=== PATIENT | male | born 1960 | race Caucasian/White ===

== ENCOUNTER 2018-10-29 01:40 | Observation (INO) ==
[2018-10-29] MEDS ORDERED: KETOROLAC TROMETHAMINE 15 MG/ML VIAL IV STA (02:17)
[2018-10-29 02:28] LABS: Hematocrit (blood only) 42.2 % (42-52); Hemoglobin 14.6 g/dL (14.0-18.0); Mean Corpuscular Hgb Conc 34.6 g/dL (32-36); Mean Platelet Volume 9.7 fL (7.4-10.4); Platelet Count 263 K/uL (130-400); RDW Standard Deviation 44.5 fL (36.4-46.3); Red Blood Count 4.54 M/uL (4.7-6.1)
[2018-10-29 02:46] LABS: Albumin Level 4.1 gm/dl (3.4-5.0); BUN Creatinine Ratio 18.9 (10-20); Calcium 8.8 mg/dl (8.5-10.1); Creatinine Clr Calc Pharmacy 82.6 ml/min; Est GFR (African American) 88.2; Est GFR (Non-African American) 76.1
[2018-10-29 02:47] LABS: Basophils # (auto) 0.03 K/uL (0-0.2); Basophils % (auto) 0.1 %; Immature Granulocytes # (auto) 0.09 K/uL (0.00-0.02); Immature Granulocytes % (auto) 0.4 %; Lymphocytes # (auto) 1.31 K/uL (1.2-3.4); Lymphocytes % (auto) 5.6 %; Monocytes # (auto) 1.75 K/uL (0.11-0.59); Monocytes % (auto) 7.5 %; Neutrophils # (auto) 20.12 K/uL (1.4-6.5); Neutrophils % (auto) 86.4 %
[2018-10-29 03:08] LABS: Albumin Globulin Ratio 1.1 (0.9-2); Bilirubin,Total 1.5 mg/dl (0.2-1); Globulin 3.7 gm/dl (2.5-4.0); Total Protein 7.8 gm/dl (6.4-8.2); Troponin I 0.098 ng/ml (0-0.045)
[2018-10-29 03:13] LABS: Influenza A virus by PCR Neg for Influ A (Neg); Influenza B virus by PCR Neg for Influ B (Neg)
[2018-10-29] MEDS ORDERED: cefTRIAXone SODIUM 1,000 MG in DEXTROSE 5% 50 ML IV STA (03:16)
[2018-10-29] MEDS ORDERED: OPTIRAY 320 125ml IV PRN (04:17)
--- NOTE | 2018-10-29 04:27 | History & Physical Report ---
Date of Service October 29, 2018 Assessment & Plan (1) Chest pain: 58-year-old male with chest pain. Pain is positional/pleuritic. Significant family history of IL. Elevated troponin found, EKG showed normal sinus rhythm Positional, pleuritic chest pain in the setting of recent URI Awaiting CT results, rule out pulmonary embolism Pain was improved with Toradol, suspicious for pericarditis/myocarditis Ordering the followingESR, CRP, Lyme's. Continue to trend troponin--significant family h/o CAD Echocardiogram ordered Cardiology consult--his see Dr. Perez, will consult [facility] Cardiology PRN Toradol for pain Leukocytosis Recent viral symptomschest x-ray did not show any signs of consolidation or bacterial transformation Blood cultures were drawn in the ED Consider ordering other infectious labsanaplasmosis, Ehrlichiosis Asthma Continue ICS and as needed albuterol DVT prophylaxis SCDs/ambulate CODE STATUS Full FEN N.p.o. (2) URI (upper respiratory infection): (3) Asthma: (4) Family history of early CAD: History of Present Illness Primary Care Provider: Porfirio Jimenez MD 58-year-old male with a history of asthma presents with chest pain beginning tonight at 5:30 PM. He states that he was not doing anything in particular when the pain beganstates that the pain became more severe with deep inspiration and with movement. He cannot remember a specific injury that halls occurred recently. He does report frequent exercise throughout the weekbiking and weightlifting. He describes the pain as a sharp pinpoint pain and states that there is some radiation to the left shoulder. States that the pain was bothering him all night until he came into the hospital around 1 AM. Patient describes being sick with URI symptoms that he has been unable to shake for the past 3 weeks. Cardiac risk factors; The patient has a significant family history of an IL in his father at age 59, his uncle at age 36 and his grandfather at age 40. He states that they all were heavy drinkers and smokers. The patient denies smoking. He denies a history of hypercholesterolemia, hypertension or diabetes. The patient exercises frequently. Patient does describe having chest pain in the past, he thinks it was in 2010. He states that he had a stress test at that time which was negative. He was diagnosed around the same time with asthma and has been using an inhaled corticosteroid and albuterol since. His asthma symptoms are stable. He denies any history of blood clots. Allergies Allergy/AdvReac Type Severity Reaction Status Date / Time tetanus immune globulin Allergy Unknown Unknown Unverified 10/29/18 04:35 CONTRASTMEDIA AdvReac Unknown Unknown Uncoded 10/29/18 04:35 Home Medications Home Medications Medication Instructions Recorded Confirmed Type acetaminophen [Tylenol Extra 1,000 mg PO Q4 PRN 10/29/18 10/29/18 History Strength] albuterol sulfate 1 puff INHALATION Q6H PRN 10/29/18 10/29/18 History fexofenadine [Regla Allergy] 180 mg PO DAILY 10/29/18 10/29/18 History fluticasone propion-salmeterol 1 inh INHALATION DAILY 10/29/18 10/29/18 History [Advair Diskus] glucosamine sulfate 1,000 mg PO DAILY 10/29/18 10/29/18 History multivitamin [Multiple Vitamins] 1 tab PO DAILY 10/29/18 10/29/18 History vitamin B complex 1 tab PO DAILY 10/29/18 10/29/18 History levofloxacin 750 mg PO DAILY #3 tab 10/30/18 Rx Past Med/Surg History Medical History Asthma Family History Other No pertinent family history Social History Preferred Language: Mauritian Communication Ability: Effective Student Support Advisor Required: No Beliefs That Will Affect Care: None Current Living Situation: Spouse Other Information That Helps Us Care for You: No Feels Safe at Home: Yes Safety Concerns: Feels Safe At This Time Smoking Status: Never smoker Hx Alcohol Use: Yes (A few beers a week) Alcohol type: beer Hx Substance Use: No Review of Systems Review of Systems: All systems reviewed & are unremarkable except as noted in HPI & below Physical Exam Vital Signs (Past 24 Hours): Last Vital Signs Temp 37.2 C 10/29/18 01:42 Pulse 83 10/29/18 03:01 Resp 20 10/29/18 03:01 BP 107/64 10/29/18 03:01 Pulse Ox 96 10/29/18 03:01 Constitutional: WD/WN, vitals as above Eyes: PERRL, conjunctivae normal, anicteric sclerae ENMT: external ear and nose normal, oropharynx normal Neck: trachea midline, no thyromegaly Respiratory: normal respiratory effort, lungs clear to auscultation Cardiovascular: RRR, no murmur, no edema Gastrointestinal (Abdomen): normal bowel sounds, soft, nontender, no hepatosplenomegaly Musculoskeletal: no cyanosis or clubbing, extremities motor strength 5/5 Skin: no rashes, warm and dry Neurologic: PERRL, EOMI, accommodation nl, no face palsy, no dysarthria Psychiatric: A+Ox3, euthymic affect Results & Data Laboratory Results Laboratory Last Values WBC 23.30 K/uL (4.8-10.8) H 10/29/18 01:59 RBC 4.54 M/uL (4.7-6.1) L 10/29/18 01:59 Hgb 14.6 g/dL (14.0-18.0) 10/29/18 01:59 Hct 42.2 % (42-52) 10/29/18 01:59 MCV 93.0 fL (80-100) 10/29/18 01:59 MCH 32.2 pg (25-34) 10/29/18 01:59 MCHC 34.6 g/dL (32-36) 10/29/18 01:59 RDW Std Deviation 44.5 fL (36.4-46.3) 10/29/18 01:59 RDW Coeff of Wander 13.0 % (11.5-14.5) 10/29/18 01:59 Plt Count 263 K/uL (130-400) 10/29/18 01:59 MPV 9.7 fL (7.4-10.4) 10/29/18 01:59 Immature Gran % (Auto) 0.4 % 10/29/18 01:59 Neut % (Auto) 86.4 % 10/29/18 01:59 Lymph % (Auto) 5.6 % 10/29/18 01:59 [place] % (Auto) 7.5 % 10/29/18 01:59 Eos % (Auto) 0.0 % 10/29/18 01:59 Baso % (Auto) 0.1 % 10/29/18 01:59 Immature Gran # (Auto) 0.09 K/uL (0.00-0.02) H 10/29/18 01:59 Neut # (Auto) 20.12 K/uL (1.4-6.5) H 10/29/18 01:59 Lymph # (Auto) 1.31 K/uL (1.2-3.4) 10/29/18 01:59 [place] # (Auto) 1.75 K/uL (0.11-0.59) H 10/29/18 01:59 Eos # (Auto) 0.00 K/uL (0-0.5) 10/29/18 01:59 Baso # (Auto) 0.03 K/uL (0-0.2) 10/29/18 01:59 Sodium 136 mmol/L (136-145) 10/29/18 01:59 Potassium 4.0 mmol/L (3.5-5.1) 10/29/18 01:59 Chloride 103 mmol/L (98-107) 10/29/18 01:59 Carbon Dioxide 28 mmol/L (21-32) 10/29/18 01:59 Anion Gap 5.0 (3-11) 10/29/18 01:59 BUN 20 mg/dl (7-18) H 10/29/18 01:59 Creatinine 1.07 mg/dl (0.6-1.4) 10/29/18 01:59 Est Cr Clr Drug Dosing 82.6 ml/min 10/29/18 01:59 Est GFR ( Amer) 88.2 10/29/18 01:59 Est GFR (Non-Af Amer) 76.1 10/29/18 01:59 BUN/Creatinine Ratio 18.9 (10-20) 10/29/18 01:59 Glucose 109 mg/dl (70-99) H 10/29/18 01:59 Calcium 8.8 mg/dl (8.5-10.1) 10/29/18 01:59 Total Bilirubin 1.5 mg/dl (0.2-1) H 10/29/18 01:59 AST 23 U/L (15-37) 10/29/18 01:59 ALT 35 U/L (12-78) 10/29/18 01:59 Alkaline Phosphatase 60 U/L (45-117) 10/29/18 01:59 Troponin I 0.098 ng/ml (0-0.045) H* 10/29/18 01:59 Total Protein 7.8 gm/dl (6.4-8.2) 10/29/18 01:59 Albumin 4.1 gm/dl (3.4-5.0) 10/29/18 01:59 Globulin 3.7 gm/dl (2.5-4.0) 10/29/18 01:59 Albumin/Globulin Ratio 1.1 (0.9-2) 10/29/18 01:59 Lipase 81 U/L (73-393) 10/29/18 01:59 Influenza Type A (PCR) Neg for Influ A (Neg) 10/29/18 02:29 Influenza Type B (PCR) Neg for Influ B (Neg) 10/29/18 02:29 Code Status & VTE Plan Code Status full VTE Prophylaxis Plan VTE Prophylaxis will be ordered: Yes Supervising Physician Co-Signing Physician Notes Attending addendum: I have physically seen this patient, have supervised the medical residents activities, and agree with the H&P unless as otherwise noted. Assessment and Plan: Chest pain/neutrophilic leukocytosis/lingular infiltrate noted on CT-- Likely bacterial superinfection post early viral process. Ceftriaxone 1 g IV daily. Guaifenesin extended release 600 mg p.o. twice daily Sputum Gram stain and culture. Troponin elevation 0.098- The patient will be admitted to telemetry for serial cardiac enzymes, serial EKG's, cardiac rhythm monitoring and a 2-D echocardiogram with Dopplers. Pericarditis and myocarditis are in the differential with recent URI symptoms over the past 3 weeks. Consult [facility]. Remainder of orders and notations as noted. Resident Activity Tracking Resident Involvement: Resident Care Provided Care Provided: Adult Hospital Medicine
[2018-10-29] MEDS: cefTRIAXone SODIUM 1000MG/50ML D5W ONE ×2 (04:33→05:03)
[2018-10-29] MEDS ORDERED: ALBUTEROL HFA 8 GM INHALER INH PRN (06:11)
[2018-10-29] MEDS ORDERED: POLYETHYLENE (MIRALAX) 17 GM PACK PO PRN (06:11)
[2018-10-29] MEDS ORDERED: KETOROLAC TROMETHAMINE 15 MG/ML VIAL IV PRN (06:11)
[2018-10-29] MEDS ORDERED: ACETAMINOPHEN 325 MG TAB PO PRN (06:11)
[2018-10-29] MEDS ORDERED: NITROGLYCERIN SL 0.4 MG/TAB TAB SL PRN (06:11)
--- NOTE | 2018-10-29 06:33 | XRay Report ---
XR chest 1V portable CLINICAL HISTORY: Atypical chest pain COMPARISON STUDY: No previous studies for comparison. FINDINGS: The heart is enlarged. There are patchy left basilar airspace opacities, suspicious for a p neumonia. Clinical correlation and radiographic follow-up is recommended. There are no pleural effusi ons. There is no failure.[ IMPRESSION: 1. Left lower lung zone airspace opacity suspicious for pneumonia. Clinical correlation and radiograp hic follow-up is recommended. Electronically signed by: Theron Braun M.D. 10/29/2018 6:32 AM
--- NOTE | 2018-10-29 07:10 | CT Scan Report ---
CT ANGIOGRAM OF THE CHEST CLINICAL HISTORY: Left-sided chest pain and shortness of breath. Suspected pulmonary embolism. COMPARISON STUDY: Chest x-ray dated 10/29/2018 TECHNIQUE: Following the IV administration of 106 mL of Optiray-320, CT angiogram of the thorax was p erformed from the thoracic inlet to the lung bases utilizing the pulmonary embolus protocol. Images a re reviewed in the axial, sagittal, and coronal planes. IV contrast was administered without complica tion. MIP imaging was performed. A dose lowering technique was utilized adhering to the principles o f ALARA. CT DOSE: 334.84 mGy.cm FINDINGS: No pathologically enlarged axillary mediastinal or hilar lymph nodes were visualized. There was no evidence of thoracic aortic dilatation. There were no pulmonary artery filling defects to indicate acute pulmonary embolism. There are subtle groundglass opacities within left upper lobe. There are more confluent airspace opac ities within the lingula. The findings are felt to represent a pneumonia. No pleural effusions are visualized. IMPRESSION: 1. No evidence of acute pulmonary embolism 2. Lingular airspace opacity suspicious for pneumonia. Clinical and radiographic follow-up is recomme nded. Electronically signed by: Theron Braun M.D. 10/29/2018 7:09 AM
--- NOTE | 2018-10-29 07:26 | Emergency Department Note ---
Entered by Castillo Kendall acting as a scribe for History of Present Illness General Chief complaint: Chest Pain Stated complaint: CHEST PAIN,COLD SWEATS,DIZZINESS,CHILLS,SWANSON Source: patient and family () History of Present Illness Provider complaint: Chest pain Onset (ago): day(s) (yesterday evening) Location: chest Radiation: extremity (left arm) Pain Consistency: + other (episode) Maximum Pain Intensity: 1 Quality: + sharp Exacerbated By: + movement and + other (taking a deep breath) Associated symptoms: + denies other symptoms (pain radiating into jaw or back, ear pain, recent travel), + fever/chills, + weakness and + other (sweats, body aches) The patient is a 58 year old male who presents to the Emergency Room with complaints of left sided chest pain that developed yesterday evening after finishing a bike ride. The patient describes his pain as sharp and states that when he moves a certain way or takes a deep breath the pain will shoot upward into his arm. He denies that the pain radiates into his back or into his jaw. He also denies any ear pain. The patient denies having any chest pain while biking, but states he was not able to do as much as normal due to feeling weak. He also admits to having trouble breathing during his bike ride, but notes that it is due to lingering congestion. The patient also states that he has been experienci ng chills, sweats and body aches as well. The patient denies any recent travelling and also denies any other medical problems other than asthma. The patient's notes that the patient has a strong family h/o heart disease. Home Medications Home Medications Medication Instructions Recorded Confirmed Type acetaminophen [Tylenol Extra 1,000 mg PO Q4 PRN 10/29/18 10/29/18 History Strength] albuterol sulfate 1 puff INHALATION Q6H PRN 10/29/18 10/29/18 History fexofenadine [Regla Allergy] 180 mg PO DAILY 10/29/18 10/29/18 History fluticasone propion-salmeterol 1 inh INHALATION DAILY 10/29/18 10/29/18 History [Advair Diskus] glucosamine sulfate 1,000 mg PO DAILY 10/29/18 10/29/18 History multivitamin [Multiple Vitamins] 1 tab PO DAILY 10/29/18 10/29/18 History vitamin B complex 1 tab PO DAILY 10/29/18 10/29/18 History levofloxacin 750 mg PO DAILY #3 tab 10/30/18 Rx Allergies Allergy/AdvReac Type Severity Reaction Status Date / Time tetanus immune globulin Allergy Unknown Unknown Unverified 10/29/18 04:35 CONTRASTMEDIA AdvReac Unknown Unknown Uncoded 10/29/18 04:35 Past Med/Surg History Medical History Asthma Family History Other No pertinent family history Social History Preferred Language: Ecuadorean Communication Ability: Effective Tint Layer Required: No Beliefs That Will Affect Care: None Current Living Situation: Spouse Other Information That Helps Us Care for You: No Feels Safe at Home: Yes Safety Concerns: Feels Safe At This Time Smoking Status: Never smoker Hx Alcohol Use: Yes (A few beers a week) Alcohol type: beer Hx Substance Use: No Review of Systems See HPI for pertinent positives & negatives. and A total of 10 systems reviewed and were otherwise negative Physical Exam Vital Signs Vital Signs - 24 hr 10/30/18 09:38 10/30/18 09:42 Temperature 36.8 C 36.8 C Pulse Rate [Left Finger] 70 70 Respiratory Rate 16 16 Blood Pressure [Left Arm] 122/69 122/69 Pulse Oximetry 95 95 Vital signs reviewed. General: Well-appearing male, in no significant distress. HEENT: No scleral icterus, PERRLA, neck supple. Atraumatic. Cardiovascular: Regular rate and rhythm, no extra sounds. Pulmonary: Clear to auscultation bilaterally, splinting with deep inspiration. Abdomen: Soft, nontender, nondistended, positive bowel sounds. Musculoskeletal: Atraumatic, no peripheral edema. Neurologic: Patient awake alert and oriented x 3. Skin: Warm, dry, no rash Course 0159: The patient was evaluated in room A10, and a complete history and physical examination were performed. 0318: I checked in on the patient and discussed his test results with him. The patient will be going for a CT shortly for a PE study. 0333: I reviewed the patient's [facility] will evaluate the patient for further management. Consultations Consultation #1: [facility] Time: 03:33 Administered Medications Discontinued Medications Acetaminophen (Tylenol) 650 mg PO Q4H PRN PRN Reason: Pain or Fever Stop: 11/28/18 06:10 Last Admin: 10/29/18 11:45 Dose: 325 mg Documented by: [id number] Aspirin (Ecotrin Ectab) 81 mg PO QAM ANGELA Stop: 11/28/18 08:59 Last Admin: 10/30/18 07:42 Dose: 81 mg Documented by: [id number] Admin: 10/29/18 09:37 Dose: 81 mg Documented by: [id number] Ceftriaxone Sodium (Rocephin) Confirm Administered Dose 1,000 mg .ROUTE .[facility] Stop: 10/29/18 04:26 Last Admin: 10/29/18 05:03 Dose: 1,000 mg Documented by: [id number] Fluticasone Propionate (Flovent Hfa 220mcg) 1 puffs INH BID ANGELA Stop: 11/28/18 08:59 Last Admin: 10/30/18 07:42 Dose: 1 puffs Documented by: [id number] Admin: 10/29/18 21:34 Dose: Not Given Documented by: [id number] Admin: 10/29/18 09:38 Dose: 1 puffs Documented by: [id number] Ceftriaxone Sodium 1,000 mg/ (Dextrose) 60 mls @ 100 mls/hr IV NOW STA Stop: 10/29/18 03:51 Last Admin: 10/29/18 04:34 Dose: Not Given Documented by: [id number] Ioversol (Optiray 320 125ml) 125 ml IV ONCE PRN PRN Reason: Interaction Checking Stop: 11/02/18 04:16 Last Admin: 10/29/18 04:17 Dose: 106 ml Documented by: [id number] Ketorolac Tromethamine (Toradol) 15 mg IV NOW STA Stop: 10/29/18 02:18 Last Admin: 10/29/18 02:25 Dose: 15 mg Documented by: [id number] Levofloxacin (Levaquin) 750 mg PO Q24H ANGELA Stop: 11/06/18 04:59 Last Admin: 10/30/18 05:39 Dose: 750 mg Documented by: [id number] Medical Decision Making Differential Diagnosis Differential diagnosis: Etiologies such as cardiac ischemia, aortic dissection, pulmonary embolism, pneumonia, pneumothorax, musculoskeletal, infections, pericarditis, myocarditis, esophageal rupture, gastrointestinal, peptic ulcer disease, gastritis, as well as others were entertained. Medical Records Attestation: I reviewed the patient's medical records. Home Medications Current Medication List: was personally reviewed by me Laboratory Data Attestation: I reviewed the patient's lab results. Result diagrams: 10/30/18 05:42 10/30/18 05:42 Lab Results 10/29/18 10/29/18 10/29/18 Range/Units 01:59 01:59 02:29 WBC 23.30 H (4.8-10.8) K/uL RBC 4.54 L (4.7-6.1) M/uL Hgb 14.6 (14.0-18.0) g/dL Hct 42.2 (42-52) % MCV 93.0 (80-100) fL MCH 32.2 (25-34) pg MCHC 34.6 (32-36) g/dL RDW Std Deviation 44.5 (36.4-46.3) fL RDW Coeff of Wander 13.0 (11.5-14.5) % Plt Count 263 (130-400) K/uL MPV 9.7 (7.4-10.4) fL Immature Gran % (Auto) 0.4 % Neut % (Auto) 86.4 % Lymph % (Auto) 5.6 % [place] % (Auto) 7.5 % Eos % (Auto) 0.0 % Baso % (Auto) 0.1 % Immature Gran # (Auto) 0.09 H (0.00-0.02) K/uL Neut # (Auto) 20.12 H (1.4-6.5) K/uL Lymph # (Auto) 1.31 (1.2-3.4) K/uL [place] # (Auto) 1.75 H (0.11-0.59) K/uL Eos # (Auto) 0.00 (0-0.5) K/uL Baso # (Auto) 0.03 (0-0.2) K/uL Sodium 136 (136-145) mmol/L Potassium 4.0 (3.5-5.1) mmol/L Chloride 103 (98-107) mmol/L Carbon Dioxide 28 (21-32) mmol/L Anion Gap 5.0 (3-11) BUN 20 H (7-18) mg/dl Creatinine 1.07 (0.6-1.4) mg/dl Est Cr Clr Drug Dosing 82.6 ml/min Est GFR ( Amer) 88.2 Est GFR (Non-Af Amer) 76.1 BUN/Creatinine Ratio 18.9 (10-20) Glucose 109 H (70-99) mg/dl Calcium 8.8 (8.5-10.1) mg/dl Total Bilirubin 1.5 H (0.2-1) mg/dl AST 23 (15-37) U/L ALT 35 (12-78) U/L Alkaline Phosphatase 60 (45-117) U/L Troponin I 0.098 H* (0-0.045) ng/ml Total Protein 7.8 (6.4-8.2) gm/dl Albumin 4.1 (3.4-5.0) gm/dl Globulin 3.7 (2.5-4.0) gm/dl Albumin/Globulin Ratio 1.1 (0.9-2) Lipase 81 (73-393) U/L Influenza Type A (PCR) Neg for Influ A (Neg) Influenza Type B (PCR) Neg for Influ B (Neg) 10/29/18 10/29/18 10/30/18 Range/Units 07:57 14:24 05:42 WBC 12.96 H (4.8-10.8) K/uL RBC 4.26 L (4.7-6.1) M/uL Hgb 13.3 L (14.0-18.0) g/dL Hct 40.4 L (42-52) % MCV 94.8 (80-100) fL MCH 31.2 (25-34) pg MCHC 32.9 (32-36) g/dL RDW Std Deviation 46.4 H (36.4-46.3) fL RDW Coeff of Wander 13.5 (11.5-14.5) % Plt Count 241 (130-400) K/uL MPV 9.9 (7.4-10.4) fL Immature Gran % (Auto) 0.2 % Neut % (Auto) 78.1 % Lymph % (Auto) 12.2 % [place] % (Auto) 8.4 % Eos % (Auto) 0.8 % Baso % (Auto) 0.3 % Immature Gran # (Auto) 0.03 H (0.00-0.02) K/uL Neut # (Auto) 10.12 H (1.4-6.5) K/uL Lymph # (Auto) 1.58 (1.2-3.4) K/uL [place] # (Auto) 1.09 H (0.11-0.59) K/uL Eos # (Auto) 0.10 (0-0.5) K/uL Baso # (Auto) 0.04 (0-0.2) K/uL Sodium (136-145) mmol/L Potassium (3.5-5.1) mmol/L Chloride (98-107) mmol/L Carbon Dioxide (21-32) mmol/L Anion Gap (3-11) BUN (7-18) mg/dl Creatinine (0.6-1.4) mg/dl Est Cr Clr Drug Dosing ml/min Est GFR ( Amer) Est GFR (Non-Af Amer) BUN/Creatinine Ratio (10-20) Glucose (70-99) mg/dl Calcium (8.5-10.1) mg/dl Total Bilirubin (0.2-1) mg/dl AST (15-37) U/L ALT (12-78) U/L Alkaline Phosphatase (45-117) U/L Troponin I 0.068 H* 0.054 H* (0-0.045) ng/ml Total Protein (6.4-8.2) gm/dl Albumin (3.4-5.0) gm/dl Globulin (2.5-4.0) gm/dl Albumin/Globulin Ratio (0.9-2) Lipase (73-393) U/L Influenza Type A (PCR) (Neg) Influenza Type B (PCR) (Neg) 10/30/18 Range/Units 05:42 WBC (4.8-10.8) K/uL RBC (4.7-6.1) M/uL Hgb (14.0-18.0) g/dL Hct (42-52) % MCV (80-100) fL MCH (25-34) pg MCHC (32-36) g/dL RDW Std Deviation (36.4-46.3) fL RDW Coeff of Wander (11.5-14.5) % Plt Count (130-400) K/uL MPV (7.4-10.4) fL Immature Gran % (Auto) % Neut % (Auto) % Lymph % (Auto) % [place] % (Auto) % Eos % (Auto) % Baso % (Auto) % Immature Gran # (Auto) (0.00-0.02) K/uL Neut # (Auto) (1.4-6.5) K/uL Lymph # (Auto) (1.2-3.4) K/uL [place] # (Auto) (0.11-0.59) K/uL Eos # (Auto) (0-0.5) K/uL Baso # (Auto) (0-0.2) K/uL Sodium 141 (136-145) mmol/L Potassium 4.6 (3.5-5.1) mmol/L Chloride 108 H (98-107) mmol/L Carbon Dioxide 31 (21-32) mmol/L Anion Gap 2.0 L (3-11) BUN 14 (7-18) mg/dl Creatinine 1.06 (0.6-1.4) mg/dl Est Cr Clr Drug Dosing 83.4 ml/min Est GFR ( Amer) 89.2 Est GFR (Non-Af Amer) 77.0 BUN/Creatinine Ratio 13.1 (10-20) Glucose 95 (70-99) mg/dl Calcium 8.9 (8.5-10.1) mg/dl Total Bilirubin (0.2-1) mg/dl AST (15-37) U/L ALT (12-78) U/L Alkaline Phosphatase (45-117) U/L Troponin I (0-0.045) ng/ml Total Protein (6.4-8.2) gm/dl Albumin (3.4-5.0) gm/dl Globulin (2.5-4.0) gm/dl Albumin/Globulin Ratio (0.9-2) Lipase (73-393) U/L Influenza Type A (PCR) (Neg) Influenza Type B (PCR) (Neg) Imaging Data Attestation: I personally reviewed and interpreted this imaging study as follows: My Impression: Chest X-ray: Pulmonary infiltrate on the left lower lung field. Radiologist's Impression: Radiology results as stated below per my review and the radiologist's interpretation: CTA CHEST: Small consolidation with surrounding groundglass in the lingula is concerning for pneumonia. No pleural effusion or pneumothorax. No evidence of pulmonary emboli. No aortic dissection or aneurysm. Radiologist: Mao Cruz MD Study ready at 04:16 and initial results transmitted at 04:54 ECG Data Attestation: I personally reviewed and interpreted this ECG as follows: Indication: chest pain Rate (beats per minute): 77 Rhythm: normal sinus Findings: no acute ischemic change and no ectopy Blood Pressure Blood Pressure Findings: Low blood pressure Blood Pressure Disposition: further management by hospitalist MDM Narrative This pt was evaluated and appeared to be in no distress. IV access was obtained and lab work was drawn. PT was placed on the director of cardiac rehabilitation. EKG reveals no acute ischemia. CXR is concerning for infiltrate. Trop is slightly elevated and WBC 23. A CT chest was ordered to r/o PE. This study reveals infiltrate but no PE. Blood cultures were ordered and pt was medicated with IV c eftriaxone. Pt was d/w the hospitalist service for further management. Pt and were informed of the findings and agree. Impression & Plan Pneumonia, Elevated white blood cell count Discharge Plan Visit Data *Final* Discharge Date/Time: 10/29/18 05:56 Chief Complaint: Chest Pain Stated Complaint: CHEST PAIN,COLD SWEATS,DIZZINESS,CHILLS,SWANSON ED Provider: Edie Rey Discharge Problem: Pneumonia, Elevated white blood cell count Patient Disposition: Admitted As Inpatient Discharge Instructions Interventions: ED Discharge Assessment Last Done: 10/29/18 04:57 Discharge Problem: Pneumonia Qualifiers: Pneumonia type: due to unspecified organism Laterality: left Lung location: lower lobe of lung Qualified Code(s): J18.1 - Lobar pneumonia, unspecified organism Elevated white blood cell count Qualifiers: Leukocytosis type: unspecified Qualified Code(s): D72.829 - Elevated white blood cell count, unspecified The scribe's documentation has been prepared under my direction and personally reviewed by me in its entirety. I confirm that the note above accurately reflects all work, treatment, procedures, and medical decision making performed by me.
[2018-10-29] MEDS: ASPIRIN 81 MG ECTAB PO SCH (09:37)
[2018-10-29] MEDS: FLUTICASONE HFA 220 MCG INHALER INH SCH ×2 (09:38→21:34)
--- NOTE | 2018-10-29 15:03 | History & Physical Bridge Note ---
Date of Service October 29, 2018 History & Physical Bridge Note Patient seen and examined this morning. Feeling well with some mild pain in the chest still. No major concerns otherwise. Discussed with Dr. Perez. Trend 1 more troponin; follow up echo. No further cardiac work-up needed if normal.
--- NOTE | 2018-10-29 15:26 | Consultation Report ---
DATE OF CONSULTATION: 10/29/2018 INPATIENT CARDIOLOGY CONSULTATION CONSULTATION REQUESTED BY: Dr. Miller. REASON FOR CONSULTATION: Elevated troponin and pleuritic chest pain. HISTORY OF PRESENT ILLNESS: Mr. Montanez is a very pleasant 58-year-old gentleman who presented to [facility] early in the a.m. of 10/29/2018 with complaints of chest pain. The patient states that for the last several weeks, he has been fighting a cold off and on, but doing relatively well. Then yesterday, he was feeling well and decided to exercise by riding on his stationary bike and while he felt well while exercising, soon as he got off, he started feeling poorly. That night, he actually developed fever and chills along with myalgias and as he was lying in bed under the blankets, he developed some chest pain. He states it was reproducible with deep inhalation or movement and he noted that when he had to go to sit up from a supine position, he would actually hold the spot to prevent him from hurting. He then developed a flop sweat and overall did not feel well and he was brought into the Emergency Department. In the Emergency Department, a 12-lead EKG was performed which was relatively unremarkable; however, initial troponin was mildly elevated and cardiology was consulted. A 2D echocardiogram was performed, which showed normal wall motion and a CT of the chest showed right lingular pneumonia. He was started on antibiotics and clinically the patient states he is now feeling better. His fevers broke and he does not have any more fevers or myalgias or chills and the chest pain is improving as well, no longer reproducible with deep inhalation. PAST SURGICAL HISTORY: 1. Shoulder surgery. 2. Lumbar spinal fusion. MEDICAL ILLNESSES: 1. Asthma. 2. Back pain. FAMILY HISTORY: Remarkable for a father who suffered a fatal myocardial infarction at age 59 and many of the males including his uncles and grandfather on his father's side had premature myocardial infarctions. SOCIAL HISTORY: Denies any tobacco use. Drinks occasional beer. Denies any recreational drug use. He is , lives at home with his . He is currently employed with [employer] in [place]. He exercises on a regular basis. REVIEW OF SYSTEMS: As per HPI, all other review of systems reviewed and negative at this time. ALLERGIES: 1. TETANUS. 2. CONTRAST MEDIA. MEDICATIONS: No prescription medications as an outpatient, does take fexofenadine, Regla and multivitamins. PHYSICAL EXAMINATION: VITALS: Temperature 36.7, pulse 74, respiratory rate 12, blood pressure 109/66. GENERAL: Awake, alert, oriented x3, no acute distress. HEENT: Normocephalic, atraumatic. Pupils equal, round, reactive to light and accommodation. Extraocular muscles intact. Anicteric sclerae. Moist mucous membranes. NECK: No JVD, no bruit. CARDIOVASCULAR: Regular. No S4. Normal S1 and S2. No S3. No murmurs, rubs or gallops. PULMONARY: Clear to auscultation bilaterally. No rales, rhonchi, or wheezing. ABDOMEN: Bowel sounds x4, soft. No rebound, guarding, tenderness. No organomegaly. EXTREMITIES: No clubbing, cyanosis or edema. +2 pedal pulses bilaterally. SKIN: Warm and dry. TEST RESULTS: A 2D echocardiogram was reported as normal LV chamber size with mild concentric LVH, normal LV systolic function, EF 60-65%, normal diastolic function, mild aortic valve sclerosis without stenosis. LABORATORY STUDIES OF SIGNIFICANCE: White count of 23.3. BUN 20, creatinine of 1. Initial troponin of 0.098 followed by 0.068. IMPRESSION: Pleuritic chest pain secondary to pneumonia. RECOMMENDATIONS: It is my pleasure to see Mr. Montanez in consultation today. From a cardiac standpoint, I believe his minimal troponin elevation could be easily explained by his prerenal azotemia or even his workout from yesterday. There are no other objective findings of ischemia. The patient clinically does not present as ischemia and no further cardiac tests or intervention is necessary. I would recommend treatment for his pneumonia and fluid resuscitation, and I have encouraged the patient to drink water.
[2018-10-30] MEDS ORDERED: levoFLOXacin 750 MG TAB PO SCH (05:00)
[2018-10-30 06:30] LABS: Basophils # (auto) 0.04 K/uL (0-0.2); Basophils % (auto) 0.3 %; Eosinophils % (auto) 0.8 %; Hematocrit (blood only) 40.4 % (42-52); Hemoglobin 13.3 g/dL (14.0-18.0); Immature Granulocytes # (auto) 0.03 K/uL (0.00-0.02); Immature Granulocytes % (auto) 0.2 %; Lymphocytes # (auto) 1.58 K/uL (1.2-3.4); Lymphocytes % (auto) 12.2 %; Mean Corpuscular Hgb Conc 32.9 g/dL (32-36); Mean Corpuscular Volume 94.8 fL (80-100); Mean Platelet Volume 9.9 fL (7.4-10.4); Monocytes # (auto) 1.09 K/uL (0.11-0.59); Monocytes % (auto) 8.4 %; Neutrophils # (auto) 10.12 K/uL (1.4-6.5); Neutrophils % (auto) 78.1 %; Platelet Count 241 K/uL (130-400); RDW Coefficient of Variation 13.5 % (11.5-14.5); RDW Standard Deviation 46.4 fL (36.4-46.3); Red Blood Count 4.26 M/uL (4.7-6.1); White Blood Count 12.96 K/uL (4.8-10.8)
[2018-10-30 06:47] LABS: BUN Creatinine Ratio 13.1 (10-20); Calcium 8.9 mg/dl (8.5-10.1); Creatinine Clr Calc Pharmacy 83.4 ml/min; Est GFR (African American) 89.2; Potassium 4.6 mmol/L (3.5-5.1)
[2018-10-30] MEDS: ASPIRIN 81 MG ECTAB PO SCH (07:42)
[2018-10-30] MEDS: FLUTICASONE HFA 220 MCG INHALER INH SCH (07:42)
--- NOTE | 2018-10-30 15:39 | Discharge Summary ---
Date of Service October 30, 2018 Admission HPI Per Admitting Provider 58-year-old male with a history of asthma presents with chest pain beginning tonight at 5:30 PM. He states that he was not doing anything in particular when the pain beganstates that the pain became more severe with deep inspiration and with movement. He cannot remember a specific injury that halls occurred recently. He does report frequent exercise throughout the weekbiking and weightlifting. He describes the pain as a sharp pinpoint pain and states that there is some radiation to the left shoulder. States that the pain was bothering him all night until he came into the hospital around 1 AM. Patient de scribes being sick with URI symptoms that he has been unable to shake for the past 3 weeks. Cardiac risk factors; The patient has a significant family history of an ND in his father at age 59, his uncle at age 36 and his grandfather at age 40. He states that they all were heavy drinkers and smokers. The patient denies smoking. He denies a history of hypercholesterolemia, hypertension or diabetes. The patient exercises frequently. Patient does describe having chest pain in the past, he thinks it was in 2010. He states that he had a stress test at that time which was negative. He was diagnosed around the same time with asthma and has been using an inhaled corticosteroid and albuterol since. His asthma symptoms are stable. He denies any history of blood clots. Principal Diagnosis Pneumonia Discharge Exam Constitutional WD/WN, vitals as above Eyes PERRL, conjunctivae normal, anicteric sclerae ENMT external ear and nose normal, oropharynx normal Neck trachea midline, no thyromegaly Respiratory normal respiratory effort, lungs clear to auscultation Cardiovascular RRR, no murmur, no edema Gastrointestinal (Abdomen) normal bowel sounds, soft, nontender, no hepatosplenomegaly Musculoskeletal no cyanosis or clubbing, extremities motor strength 5/5 Skin no rashes, warm and dry Neurologic PERRL, EOMI, accommodation nl, no face palsy, no dysarthria Psychiatric A+Ox3, euthymic affect Discharge Data Allergies Allergy/AdvReac Type Severity Reaction Status Date / Time tetanus immune globulin Allergy Unknown Unknown Unverified 10/29/18 04:35 CONTRASTMEDIA AdvReac Unknown Unknown Uncoded 10/29/18 04:35 Consultations 10/29/18 04:46 ED Decision to Admit Stat 10/29/18 06:11 Consult Cardiology Routine Ordered Studies 10/29/18 03:15 CT angio chest PE protocol Urgent Hospital Course (1) Chest pain: Chest pain likely MSK vs. from pneumonia. Troponins were 0.1 -> 0.06 -> 0.05. Seen by Dr. Perez who felt it was dehydration and work-out. Echo was normal. - No further work-up Pneumonia - Seen on CTA that was done to rule out PE. WBC was 23 -> 13 on one day of abx. Given levofloxacin on discharge for 5-day course. PCP follow up. (2) URI (upper respiratory infection): (3) Asthma: (4) Family history of early CAD: Total Time Total Time Spent Total Time Spent (In Minutes): 45 Discharge Plan Discharge Items Patient Disposition: Home - Self-Care Reason For Visit: CHEST PAIN, ELEVATED TROP Discharge Diagnosis: Pneumonia, elevated troponins Discharge Goals: Decrease discomfort, Diagnostic testing and Improve function Activity: Resume your previous activity Non-emergency contact: Primary Care Provider Call non-emergency contact if: your symptoms worsen and your pain is not controlled Follow-up/Referrals: Porfirio Jimenez MD [Primary Care Provider] - 11/05/18 1:30 pm (Please, follow up at Dr. Porfirio Jimenez' office with his associate, Dr. Rick Landa, on SaturdayNovember 05 at 1:30 pm. *If you need to change this appointment, call the office at [phone].) Diet: Regular Addtl Provider Instructions: Mr. Montanez, You were admitted to the hospital with chest pain. You were found to have a pneumonia. We treated you with IV antibiotics. Your white count (a lab marker of infection) came down quickly, and is nearly normal. We will have you take a 4- day course of antibiotics and can follow up with your PCP in a week or two to be sure you're feeling better. Your troponin (a marker of heart damage) was very mildly elevated. Dr. Perez saw you in the hospital and felt it did not represent any heart disease or coronary artery disease, but instead was merely a mild marker of stress from the pneumonia and some dehydration. The cardiac marker returned to near normal levels by discharge. We did an echo of your heart which was normal, showing good squeeze, and no issues with the heart valves. Dr. Perez did not feel any further testing was necessary. Please return to the hospital with any further chest pain, shortness of breath, lightheadedness, dizziness, or other concerning symptoms. Prescriptions: New levofloxacin 750 mg tablet 750 mg PO DAILY Qty: 3 RF: 0 Continued fluticasone propion-salmeterol [Advair Diskus] 250-50 mcg/dose Blister With Device 1 inh INHALATION DAILY RF: 0 fexofenadine [Regla Allergy] 180 mg Tablet 180 mg PO DAILY RF: 0 vitamin B complex Tablet 1 tab PO DAILY RF: 0 albuterol sulfate 90 mcg/actuation Hfa Aerosol Inhaler 1 puff INHALATION Q6H PRN (Reason: Shortness Of Breath Or Wheezing) RF: 0 glucosamine sulfate 1,000 mg Capsule 1,000 mg PO DAILY RF: 0 multivitamin [Multiple Vitamins] Tablet 1 tab PO DAILY RF: 0 acetaminophen [Tylenol Extra Strength] 500 mg Tablet 1,000 mg PO Q4 PRN (Reason: Pain) RF: 0 Stand-Alone Forms: Call Back Authorization, [facility] Discharge Orders: Discharge Order (Routine); Ordered 10/30/18 Ordered By: Good Porter Admission Data Admit Date/Time: 10/29/18 04:07 Attending Provider: Good Porter Admit Provider: Vivek Miller Primary Care Provider: Porfirio Jimenez Other Providers: Clemente Garcia ; Good Porter Service: Telemetry Other Interventions: Discharge Summary Assessment (RN) Last Done: 10/30/18 09:42 DC Date/Time DO NOT enter until pt leaves facility: 10/30/18 10:11
== END 2018-10-30 10:11 | disposition home or self-care (01) ==
LOC: 2S 01:40 → ED 01:40 → SUATTDRO 04:07 → 2S 04:57